=== PATIENT | female | born 1955 | race Two or more races ===

== ENCOUNTER 2017-04-02 14:22 | Outpatient (CLI) | payer OTHER | END 2017-04-02 14:38 | disposition home or self-care (01) | LOC: SONOGRAMA 14:22 | DX: N63.42 Unspecified lump in left breast, subareolar (principal) ==

== ENCOUNTER 2018-11-11 08:05 | Day surgery (SDC) | payer OTHER ==
[~2018-11-11 08:05] MED LIST: ATORVASTATIN CA20 MG PO; HUMALOG100 UNIT/1 SQ; LANTUS SOL100 UNIT/1 SUBCUTANEO; LOSARTAN-HCTZ1 EACH PO; NIFEDIPINE ER30 MG PO; PROTONIX40 MG PO; SYNTHROID50 MCG PO; TOPROL XL50 MG PO; TROMBONEX CAPS1 EACH PO
== END 2018-11-11 14:45 | disposition home or self-care (01) ==
LOC: CIR.AMB 08:05
DX: N95.0 Postmenopausal bleeding (principal)